=== PATIENT | male | born 1955 | race Caucasian/White ===

== ENCOUNTER 2017-04-25 12:01 | Emergency (ER) | payer MEDICAID ==
[~2017-04-25] VITALS: Ht 170.2 cm; Wt 70.5 kg
[~2017-04-25 12:01] MED LIST: BUPR-93 PO; CITA20TA9 PO; IBUP-2071 PO; TRAZ150 PO
[2017-04-25] MEDS ORDERED: ANTIHYPERTENSIVE PO (12:13)
[2017-04-25 12:52] VITALS: BP 129/77
== END 2017-04-25 12:55 | disposition home or self-care (01) ==
LOC: EMS 12:04
DX: J40 Bronchitis, not specified as acute or chronic (principal); F17.210 Nicotine dependence, cigarettes, uncomplicated
CPT/HCPCS: 99283; 99406

== ENCOUNTER 2017-04-30 18:07 | Emergency (ER) | payer MEDICAID ==
[~2017-04-30] VITALS: Ht 175.3 cm; Wt 78.6 kg
[~2017-04-30 18:07] MED LIST changes: +ANTIHYPERTENSIVE PO
[2017-04-30 18:36] VITALS: BP 130/78
== END 2017-04-30 22:44 | disposition home or self-care (01) ==
LOC: EMS 18:19
DX: Z02.79 Encounter for issue of other medical certificate (principal); Z59.0 Homelessness; F17.210 Nicotine dependence, cigarettes, uncomplicated; Z88.8 Allergy status to other drugs, medicaments and biological substances
CPT/HCPCS: 99281